=== PATIENT | male | born 1985 | race Caucasian/White ===

== ENCOUNTER 2016-12-16 09:05 | Emergency (ER) ==
[2016-12-16 09:18] VITALS: BP 149/92; TEMP 99.9; BMI 31.1
--- NOTE | 2016-12-16 09:25 | ED.PDOC ---
General ED Provider: Dr. NITESH RASMUSSEN Chief Complaint: Sore Throat Stated Complaint: sore throat Time Seen by Physician: 09:10 Mode of Arrival: Walk-In Information Source: Patient Exam Limitations: No limitations Primary Care Provider: MADALYN BRIGHT Nursing and Triage Documentation Reviewed and Agree: Yes EENT Complaint Exam - Throat Complaint/Exam Symptoms Are: Still present Timimg: Constant Initial Severity: Moderate Current Severity: Moderate Aggravating: Reports: Eating Alleviating: Reports: None Associated Signs and Symptoms: Reports: Cough, Nasal congestion. Denies: Fever , Dysphagia, Drooling, Foreign body sensation, Chills, Wheezing, Hoarseness, Sinus discomfort, Difficulty breathing, Lethargy, Irritability, Decreased activity, Vomiting, Diarrhea, Decreased hearing, Ear drainage Uvula Midline: Yes Nelly-tonsillar Fluctuence: No Scarlatinaform Rash Present: No Stridor Present: No Sinus Tenderness Present: No Tonsillar Hypertrophy Present: No Tonsillar Exudate Present: No Nelly-tonsillar Swelling Present: Yes (left side withe exudate , the swelling how ever is minimal nonetoxic pt) Adenopathy Present: No Splenomegaly Present: No Differential Diagnoses: Pharyngitis, Tonsillitis Review of Systems - Review Of Systems Constitutional: Reports: No symptoms Eyes: Reports: No symptoms Ears, Nose, Mouth, Throat: Reports: Throat pain Respiratory: Reports: No symptoms Cardiac: Reports: No symptoms GI: Reports: No symptoms : Reports: No symptoms Musculoskeletal: Reports: No symptoms Skin: Reports: No symptoms Neurological: Reports: No symptoms Endocrine: Reports: No symptoms Hematologic/Lymphatic: Reports: No symptoms All Other Systems: Reviewed and Negative Past Medical History - Past Medical History Endocrine: Reports: None Cardiovascular: Reports: None Respiratory: Reports: None Hematological: Reports: None Gastrointestinal: Reports: GERD Genitourinary: Reports: None Neuro/Psych: Reports: None Musculoskeletal: Reports: None Cancer: Reports: None - Surgical History General Surgical History: Reports: Hernia Repair (umbilical hernia repair), Other (gastroscopy for gerd(not bronchoscopy)) - Family History Family History: Reports: Unknown - Social History Smoking Status: Current some day smoker Hx Substance Use: No Alcohol Screening: None Physical Exam - Physical Exam Appearance: Well-appearing, No pain distress, Well-nourished Eyes: KARIN, EOMI, Conjunctiva clear ENT: Erythema, Exudate Respiratory: Airway patent, Breath sounds clear, Breath sounds equal, Respirations nonlabored Cardiovascular: RRR, Pulses normal, No rub, No murmur GI/: Soft, Nontender, No masses, Bowel sounds normal, No Organomegaly Musculoskeletal: Normal strength, ROM intact, No edema, No calf tenderness Skin: Warm, Dry, Normal color Neurological: Sensation intact, Motor intact, Reflexes intact, Cranial nerves intact, Alert, Oriented Psychiatric: Affect appropriate, Mood appropriate Critical Care Note - Critical Care Note Total Time (mins): 0 Course - Course Vital Signs: Temp Pulse Resp BP Pulse Ox 12/16/16 09:09 99.9 F H 84 20 149/92 H 96 Departure - Departure Time of Disposition: 09:25 Disposition: HOME SELF-CARE Discharge Problem: Sore throat symptom, Streptococcal sore throat Pharyngitis Qualifiers: Pharyngitis/tonsillitis etiology: unspecified etiology Qualifier Code: (J02.9) Acute pharyngitis, unspecified Instructions: Pharyngitis (ED), Strep Throat (ED), Tonsillitis (ED) Condition: Good Pt referred to PMD for follow-up: No Additional Instructions: Please call your Family Physician as soon as possible to schedule a follow-up appointment.follow the printed discharge instruction carefully Allergies/Adverse Reactions: Allergies No Known Allergies Allergy (Verified 12/16/16 09:13) Home Medications: Ambulatory Orders Ranitidine HCl [Zantac] 300 mg PO BID 07/03/14 Amoxicillin 500 mg PO Q6HR #42 tablet 12/16/16
[2016-12-16] MEDS ORDERED: ROCEPHIN IM STA (09:28)
[2016-12-16] MEDS ORDERED: LIDOCAINE 1 % AMP 5 ML (SUTURES) IM STA (09:28)
== END 2016-12-16 10:25 | disposition home or self-care (01) ==
LOC: ED 09:05
DX: J02.9 Acute pharyngitis, unspecified (principal); F17.210 Nicotine dependence, cigarettes, uncomplicated
CPT/HCPCS: 87651; 87880; 96372; 99283

== ENCOUNTER 2017-02-28 17:22 | Emergency (ER) ==
[2017-02-28 17:28] VITALS: BP 157/98; TEMP 99.4; BMI 31.1
[2017-02-28] MEDS ORDERED: LIDOCAINE 1 % AMP 5 ML (SUTURES) SUBCUT STA (17:39)
--- NOTE | 2017-02-28 17:41 | ED.PDOC ---
General ED Provider: Dr. MISHEL BARRAGAN Chief Complaint: Finger Laceration Stated Complaint: while cleaning the car, hand stuck on sharp object, and hat to rt hand. Time Seen by Physician: 17:39 Mode of Arrival: Walk-In Information Source: Patient Primary Care Provider: MADALYN BRIGHT Nursing and Triage Documentation Reviewed and Agree: Yes Skin Complaint Exam - Laceration/Upper Ext. Complaint/Exam Location of Injury: Right Mechanism of Injury: Laceration Symptoms Are: Still present Initial Severity: Mild Current Severity: Mild Aggravating: Movement Alleviating: None Differential Diagnoses: Laceration Review of Systems - Review Of Systems Constitutional: Reports: No symptoms Eyes: Reports: No symptoms Ears, Nose, Mouth, Throat: Reports: No symptoms Respiratory: Reports: No symptoms Cardiac: Reports: No symptoms GI: Reports: No symptoms : Reports: No symptoms Musculoskeletal: Reports: No symptoms Skin: Reports: No symptoms Neurological: Reports: No symptoms Endocrine: Reports: No symptoms Hematologic/Lymphatic: Reports: No symptoms All Other Systems: Reviewed and Negative Past Medical History - Past Medical History Previously Healthy: No Endocrine: Reports: None Cardiovascular: Reports: None Respiratory: Reports: None Hematological: Reports: None Gastrointestinal: Reports: GERD Genitourinary: Reports: None Neuro/Psych: Reports: None Musculoskeletal: Reports: None Cancer: Reports: None - Surgical History General Surgical History: Reports: Hernia Repair (umbilical hernia repair), Other (gastroscopy for gerd(not bronchoscopy)) - Family History Family History: Reports: Unknown - Social History Smoking Status: Current some day smoker, Former smoker Smoking Cessation Counseling Time: > 3 min - 10 min Hx Substance Use: No Alcohol Screening: Occasionally - Immunizations Tetanus Shot up to Date: Yes Physical Exam - Physical Exam Appearance: Well-appearing, No pain distress, Well-nourished Eyes: KARIN, EOMI, Conjunctiva clear ENT: Ears normal, Nose normal, Oropharynx normal Respiratory: Airway patent, Breath sounds clear, Breath sounds equal, Respirations nonlabored Cardiovascular: RRR, Pulses normal, No rub, No murmur GI/: Soft, Nontender, No masses, Bowel sounds normal, No Organomegaly Musculoskeletal: Normal strength, ROM intact, No edema, No calf tenderness Skin: Warm, Dry, Normal color Neurological: Sensation intact, Motor intact, Reflexes intact, Cranial nerves intact, Alert, Oriented Psychiatric: Affect appropriate, Mood appropriate Procedures - Laceration/Wound Repair No standard instances Wound Description: Linear Wound Length (cm): 2 cm Wound Width: 0.2 cm Wound Explored: Clean Wound Irrigated: Yes Wound Prep: Saline, Hibiclens Anesthesia: Lidocaine Wound Repaired With: Sutures Number of Sutures: 3 Critical Care Note - Critical Care Note Total Time (mins): 0 Course - Course Orders, Labs, Meds: Orders Category Date Time Status Lidocaine HCl/Pf [Lidocaine 1 % Amp 5 ml (Sutures)] MEDS 02/28/17 17:39 Discontinued 5 ml SUBCUT ONCE STA Medications Discontinued Medications Generic Name Dose Route Start Last Admin Trade Name Freq PRN Reason Stop Dose Admin Lidocaine HCl 5 ml 02/28/17 17:39 Lidocaine 1 % Amp 5 Ml (Sutures) SUBCUT 02/28/17 17:40 ONCE STA Vital Signs: Temp Pulse Resp BP Pulse Ox 02/28/17 17:23 99.4 F 98 H 18 157/98 H 98 Departure - Departure Time of Disposition: 17:55 Disposition: HOME SELF-CARE Discharge Problem: Laceration of finger Instructions: Laceration (ED) Condition: Stable Pt referred to PMD for follow-up: Yes Additional Instructions: Tylenol prn keep wound clean If redness or swelling needs f/u with PMD Allergies/Adverse Reactions: Allergies No Known Allergies Allergy (Verified 02/28/17 17:27) Home Medications: Ambulatory Orders Ranitidine HCl [Zantac] 300 mg PO BID 07/03/14 Disposition Discussed With: Patient
== END 2017-02-28 18:04 | disposition home or self-care (01) ==
LOC: ED 17:22
DX: S61.219A Laceration without foreign body of unspecified finger without damage to nail, initial encounter (principal); W45.8XXA Other foreign body or object entering through skin, initial encounter; F17.210 Nicotine dependence, cigarettes, uncomplicated
CPT/HCPCS: 96372; 99283

== ENCOUNTER 2017-03-18 19:31 | Emergency (ER) ==
[2017-03-18 19:34] VITALS: BP 152/92; TEMP 99.3; BMI 31.8
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
[2017-03-18] MEDS ORDERED: TORADOL IM STA (19:55)
== END 2017-03-18 20:32 | disposition home or self-care (01) ==
LOC: ED 19:31
DX: M54.5 Low back pain (principal); S91.209D Unspecified open wound of unspecified toe(s) with damage to nail, subsequent encounter; V43.52XD Car driver injured in collision with other type car in traffic accident, subsequent encounter; F17.210 Nicotine dependence, cigarettes, uncomplicated
CPT/HCPCS: 96372; 99283

== ENCOUNTER 2017-04-18 15:00 | Outpatient (RCR) ==
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
--- NOTE | 2017-04-07 16:30 | RS.OPPTDN ---
Subjective Date of Note: 04/07/17 Visit #: 2 Date of Evaluation: 04/02/17 Payer Source: Medicaid Treatment Diagnosis: Low back pain Current Subjective/complaints:: Patient reports he is more comfortable resting on his stomach currently. Pain Assessment - Pain Description Pain Location: Low back and right hip region Pain Description: Radiating, Aching Current Pain Intensity: 8/10 - Treatment Modality: Electrical Stim Unattended Parameters/Method Applied: 20 mins. high volt to lumbar area in prone ,channel 1 @ 170 pv, channel 2 @ 160 pv. Patient Position: Prone - Heat/Cryotherapy Treatment: Hot Pack (concurrent with e-stim) Interventions - Exercise/Activities/Manual Therapy Exercises/Activities: Attempted exercises in prone and supine ,but both elicited pain. Total minutes of Exercise: 0 Manual Therapy: NA Total minutes of Manual Therapy: 0 HOME EXERCISE PROGRAM: none at this time - Charges Total Direct Minutes: 0 Total Treatment Time: 20 Procedures billed for this date of service:: hp,e-stim Assessment: Patient reports sciatic pain today in te R hip and LE.he reports increased pain with attempting flexion or extension.We will resume exercises when he can tolerate them,possibly use manual therapy for pain control . Patient Education: Education of diagnosis, Body/Joint mechanics, Home Exercise Program, Home Safety, Activity Modification, Education of Plan of Care Patient demonstrates compliance with HEP?: Yes Short Term Goals Goal #1: Patient will display independence with home exercise program. Goal to be met by: 04/17/17 Goal #2: Lumbar paraspinals decreased to mininmal. Goal to be met by: 04/17/17 Progress towards Goal:: No Change Goal #3: Pain at rest <5/10. Goal to be met by: 04/17/17 Goal #4: Lumbar AROM WFL's with minimal discomfort. Goal to be met by: 04/17/17 Long-Term Goals Goal #1: Pt knows HEP and to continue ex's to maintain level at D/C. Goal to be met by: 05/08/17 Goal #2: Score on Oswestry LBP scale improved to 30. Goal to be met by: 05/08/17 Goal #3: Patient will report normal sleep pattern. Goal to be met by: 05/08/17 Goal #4: Pt able to tolerate prolonged standing & walking with minimal back pain. Goal to be met by: 05/08/17 Plan PLAN OF CARE EXPIRES ON:: 05/08/17 ORDER # VISITS AND/OR THROUGH DATE: 05/08/17 PLAN: Continue Plan of Care
--- NOTE | 2017-04-11 16:35 | RS.OPPTDN ---
Subjective Date of Note: 04/11/17 Visit #: 3 Date of Evaluation: 04/02/17 Payer Source: Medicaid Treatment Diagnosis: Low back pain Current Subjective/complaints:: Reports the back is slightly better today,but was off from work on and .He did work today,feels fatigued. Pain Assessment - Pain Description Pain Location: Low back and right hip region Pain Description: Radiating, Aching Current Pain Intensity: 7/10 - Treatment Modality: Electrical Stim Unattended Parameters/Method Applied: 20 mins. high volt to lumbar,channel 1 @ 105 and channel 2 @ 135 pv. Patient Position: Prone - Heat/Cryotherapy Treatment: Hot Pack (concurrent with e-stim) Interventions - Exercise/Activities/Manual Therapy Exercises/Activities: 20 mins. SKTC,DKTC,90/90 hamstring stretches,piriformis stretches,pelvic tilts. Total minutes of Exercise: 20 Manual Therapy: NA Total minutes of Manual Therapy: 0 HOME EXERCISE PROGRAM: None at this time. - Charges Total Direct Minutes: 20 Total Treatment Time: 40 Procedures billed for this date of service:: hp,e-stim,ex 1 Assessment: Patient able to tolerate the exercises today ,as his pain is slightly better.He has moderate tightness in the hamstrings,but responds well to the stretches.He has good understanding of positioning for pain relief. Patient Education: Education of diagnosis, Body/Joint mechanics, Home Exercise Program, Home Safety, Activity Modification, Education of Plan of Care Patient demonstrates compliance with HEP?: Yes Short Term Goals Goal #1: Patient will display independence with home exercise program. Goal to be met by: 04/17/17 Progress towards Goal:: Progressing Goal #2: Lumbar paraspinals decreased to mininmal. Goal to be met by: 04/17/17 Progress towards Goal:: Progressing Goal #3: Pain at rest <5/10. Goal to be met by: 04/17/17 Goal #4: Lumbar AROM WFL's with minimal discomfort. Goal to be met by: 04/17/17 Mcfp Goals Goal #1: Pt knows HEP and to continue ex's to maintain level at D/C. Goal to be met by: 05/08/17 Progress towards goal: Progressing Goal #2: Score on Oswestry LBP scale improved to 30. Goal to be met by: 05/08/17 Goal #3: Patient will report normal sleep pattern. Goal to be met by: 05/08/17 Goal #4: Pt able to tolerate prolonged standing & walking with minimal back pain. Goal to be met by: 05/08/17 Plan PLAN OF CARE EXPIRES ON:: 05/08/17 ORDER # VISITS AND/OR THROUGH DATE: 05/08/17 PLAN: Continue Plan of Care
--- NOTE | 2017-04-15 16:31 | RS.OPPTDN ---
Subjective Date of Note: 04/15/17 Visit #: 4 Date of Evaluation: 04/02/17 Payer Source: Medicaid Treatment Diagnosis: Low back pain Current Subjective/complaints:: Patient reports the back feels about the same today,has had busy work day. Pain Assessment - Pain Description Pain Location: Low back Pain Description: Aching Current Pain Intensity: 7/10 - Treatment Modality: Electrical Stim Unattended Parameters/Method Applied: 20 mins. high volt,channel 1 and 2 @ 120 pv. Patient Position: Prone - Heat/Cryotherapy Treatment: Hot Pack (concurrent with e-stim) Interventions - Exercise/Activities/Manual Therapy Exercises/Activities: 20 mins. SKTC,DKTC,90/90 hamstring stretches with contract - relax,piriformis stretches,pelvic tilts.Alternating hip flexion , resisted hip flexion. Total minutes of Exercise: 20 Manual Therapy: NA Total minutes of Manual Therapy: 0 HOME EXERCISE PROGRAM: Pelvic tilts,SKTC,DKTC,90/90 hams. stretches,piriformis stretches,prone on elbows. - Charges Total Direct Minutes: 20 Total Treatment Time: 40 Procedures billed for this date of service:: hp,e-stim,ex 1 Assessment: Patient has moderate hamstring tightness bilaterally.He has increased pain with R piriformis stretch today.He reports the pain varies with amount of daily tasks,frequently has to change positions while sleeping. Patient Education: Education of diagnosis, Body/Joint mechanics, Home Exercise Program, Home Safety, Activity Modification, Education of Plan of Care Short Term Goals Goal #1: Patient will display independence with home exercise program. Goal to be met by: 04/17/17 Progress towards Goal:: Partially Met Goal #2: Lumbar paraspinals decreased to mininmal. Goal to be met by: 04/17/17 Progress towards Goal:: Progressing Goal #3: Pain at rest <5/10. Goal to be met by: 04/17/17 Progress towards Goal:: No Change Goal #4: Lumbar AROM WFL's with minimal discomfort. Goal to be met by: 04/17/17 Progress towards Goal:: Progressing Care Home Goals Goal #1: Pt knows HEP and to continue ex's to maintain level at D/C. Goal to be met by: 05/08/17 Progress towards goal: Progressing Goal #2: Score on Oswestry LBP scale improved to 30. Goal to be met by: 05/08/17 Goal #3: Patient will report normal sleep pattern. Goal to be met by: 05/08/17 Goal #4: Pt able to tolerate prolonged standing & walking with minimal back pain. Goal to be met by: 05/08/17 Plan PLAN OF CARE EXPIRES ON:: 05/08/17 ORDER # VISITS AND/OR THROUGH DATE: 05/08/17 PLAN: Continue Plan of Care
--- NOTE | 2017-04-18 16:24 | RS.OPPTDN ---
Subjective Date of Note: 04/18/17 Visit #: 5 Date of Evaluation: 04/02/17 Payer Source: Medicaid Treatment Diagnosis: Low back pain Current Subjective/complaints:: Patient reports his back pain is about the same today,has been on his hands and knees alot today at work. Pain Assessment - Pain Description Pain Location: Low back /R hip Pain Description: Aching Current Pain Intensity: 7/10 - Treatment Modality: Electrical Stim Unattended Parameters/Method Applied: 20 mins. high volt to lumbar ,channel 1 and channel 2 @ 155 pv. Patient Position: Prone - Heat/Cryotherapy Treatment: Hot Pack (co ncurrent with e-stim) Interventions - Exercise/Activities/Manual Therapy Exercises/Activities: 20 mins. SKTC,DKTC,90/90 hamstring stretches with contract - relax,piriformis stretches,pelvic tilts.Alternating hip flexion , resisted hip flexion. Total minutes of Exercise: 20 Manual Therapy: NA Total minutes of Manual Therapy: 0 HOME EXERCISE PROGRAM: Pelvic tilts,SKTC,DKTC,90/90 hams. stretches,piriformis stretches,prone on elbows. - Charges Total Direct Minutes: 20 Total Treatment Time: 40 Procedures billed for this date of service:: hp,e-stim,ex 1 Assessment: Patient has increased tightness today in bilateral piriformis muscles,R > L today.He has improved hamstring extensibility present.He gets relief from prone and supine positioning today. Patient Education: Education of diagnosis, Body/Joint mechanics, Home Exercise Program, Home Safety, Activity Modification, Education of Plan of Care Patient demonstrates compliance with HEP?: Yes Short Term Goals Goal #1: Patient will display independence with home exercise program. Goal to be met by: 04/17/17 Progress towards Goal:: Partially Met Goal #2: Lumbar paraspinals decreased to mininmal. Goal to be met by: 04/17/17 Progress towards Goal:: Progressing Goal #3: Pain at rest <5/10. Goal to be met by: 04/17/17 Progress towards Goal:: No Change Goal #4: Lumbar AROM WFL's with minimal discomfort. Goal to be met by: 04/17/17 Progress towards Goal:: Progressing Rate And Cost Analyst Goals Goal #1: Pt knows HEP and to continue ex's to maintain level at D/C. Goal to be met by: 05/08/17 Progress towards goal: Progressing Goal #2: Score on Oswestry LBP scale improved to 30. Goal to be met by: 05/08/17 Goal #3: Patient will report normal sleep pattern. Goal to be met by: 05/08/17 Goal #4: Pt able to tolerate prolonged standing & walking with minimal back pain. Goal to be met by: 05/08/17 Plan PLAN OF CARE EXPIRES ON:: 05/08/17 ORDER # VISITS AND/OR THROUGH DATE: 05/08/17 PLAN: Continue Plan of Care
== END 2017-04-21 ==
PROVIDERS: ATTEND Family Medicine
DX: M54.9 Dorsalgia, unspecified (principal)

== ENCOUNTER 2017-04-22 13:07 | Outpatient (CLI) ==
--- NOTE | 2017-04-22 15:55 | MRI ---
EXAM: MRI lumbar spine without IV contrast. DATE: 22 April 2017. HISTORY: Low back pain. TECHNIQUE: Sagittal and axial T1W and T2W sequences of the lumbar spine along with sagittal IR and coronal T2W sequences were obtained using 1.5 Amy magnet. No IV contrast. COMPARISON: CT lumbar spine 04/06/2017. MRI L-spine 12 October 2015. FINDINGS: There are five [id number] lumbar vertebra. No lumbar scoliosis is evident. There i s approximately 3 mm anterior subluxation of S1 relative to L5. No other subluxation, acute fractur e, osseous malignancy, or pars interarticularis defect is demonstrated. Lumbar vertebra are normal i n height. Anterior osteophytes noted at L4-5 and L5-S1. There is minor disc desiccation at L4-5 an d L5-S1. Intervertebral discs are normal in height. No sacral fracture or stress reaction is appar ent. SI joints are unremarkable. Conus medullaris terminates at T12-L1. Visible spinal cord is no rmal. No retroperitoneal lymphadenopathy, paraspinal mass, or aortic aneurysm is detected. Paraspinal mus culature is symmetric bilaterally. Visible portions of the liver, gallbladder, spleen, adrenal glan ds and kidneys reveal no definitive abnormality. Segmental analysis: T12-L1: Normal. L1-2: Normal. L2-3: Normal. L3-4: Normal. L4-5: Normal. L5-S1: Minor anterior subluxation of S1, small concentric disc bulge, and minor facet arthropathy c ause minimal/mild right and moderate left foraminal stenoses. Left L5 nerve root contacts the disc bulge/osteophyte near the lateral margin of the foramen. No central canal stenosis. IMPRESSIONS: 1. L-spine minor facet disease and mild DDD. 2. No lumbar spine central canal stenosis. 3. Mild right and moderate left foraminal stenoses at L5-S1. Left L5 nerve root contacting the dis c bulge near the foramen may be a source for pain/radiculopathy.
== END 2017-04-22 13:08 | disposition home or self-care (01) ==
LOC: RAD 13:07
PROVIDERS: ATTEND Family Medicine
DX: M54.5 Low back pain (principal); S90.229A Contusion of unspecified lesser toe(s) with damage to nail, initial encounter; V89.2XXD Person injured in unspecified motor-vehicle accident, traffic, subsequent encounter

== ENCOUNTER 2017-11-17 23:22 | Emergency (ER) ==
[2017-11-17 23:22] VITALS: BMI 31.8
[2017-11-17 23:35] VITALS: BP 129/84; TEMP 98.8
[2017-11-17] MEDS ORDERED: TORADOL IM STA (23:45)
[2017-11-17] MEDS ORDERED: NORFLEX IM STA (23:45)
[2017-11-17] MEDS ORDERED: DEMEROL 50 MG/ML VIAL IM STA (23:48)
[2017-11-17] MEDS ORDERED: PHENERGAN 25 MG/ML VIAL IM STA (23:48)
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
== END 2017-11-18 01:36 | disposition home or self-care (01) ==
LOC: ED 23:22
DX: M54.5 Low back pain (principal)
CPT/HCPCS: 96372; 99283

== ENCOUNTER 2018-09-28 07:57 | Emergency (ER) ==
[2018-09-28 08:01] VITALS: BP 141/93; TEMP 98.1; BMI 31.1
--- NOTE | 2018-09-28 08:45 | CT ---
EXAM: CT of the left hand without contrast History: Left hand pain and trauma. Technique: Multiplanar CT images through the left hand were obtained without the administration of I V contrast Findings: No acute fracture or dislocation. No abnormal calcifications or radiopaque foreign bodies . Joint spaces are preserved. Surrounding soft tissues demonstrate no acute findings. Impression: No acute abnormalities
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
== END 2018-09-28 09:11 | disposition home or self-care (01) ==
LOC: ED 07:57
DX: S63.92XA Sprain of unspecified part of left wrist and hand, initial encounter (principal); X50.1XXA Overexertion from prolonged static or awkward postures, initial encounter
CPT/HCPCS: 99283

== ENCOUNTER 2018-12-15 15:32 | Emergency (ER) ==
[2018-12-15 15:34] VITALS: BP 146/88; TEMP 98.8; BMI 30.6
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
== END 2018-12-15 16:21 | disposition home or self-care (01) ==
LOC: ED 15:32
DX: K08.89 Other specified disorders of teeth and supporting structures (principal); K13.79 Other lesions of oral mucosa; K04.7 Periapical abscess without sinus
CPT/HCPCS: 99282

== ENCOUNTER 2019-02-23 11:22 | Outpatient (CLI) | END 2019-02-23 11:23 | disposition home or self-care (01) | LOC: RHC-LAB 11:22 | PROVIDERS: ATTEND Nurse Practitioner Family | DX: Z00.00 Encounter for general adult medical examination without abnormal findings (principal) | CPT/HCPCS: 36415; 80053; 80061; 84443; 85025 ==

== ENCOUNTER 2019-03-06 09:49 | Emergency (ER) ==
[2019-03-06 09:52] VITALS: BP 153/95; TEMP 97.7; BMI 30.2
[2019-03-06] MEDS ORDERED: NORFLEX PO STA (11:46)
[2019-03-06] MEDS ORDERED: TORADOL IM STA (11:46)
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
== END 2019-03-06 12:39 | disposition home or self-care (01) ==
LOC: ED 09:49
DX: M54.5 Low back pain (principal); G89.29 Other chronic pain; M51.36 Other intervertebral disc degeneration, lumbar region
CPT/HCPCS: 96372; 99283